=== PATIENT | female | born 1990 | race Caucasian/White ===

== ENCOUNTER 2016-10-19 13:48 | Emergency (ER) | payer OTHER ==
[2016-10-19] MEDS ORDERED: NS 0.9% 1000 ML* 1,000 ML IV ONE (17:20)
[2016-10-19] MEDS ORDERED: Ondansetron INJ* 2 MG/ML VIAL IV ONE (17:51)
[2016-10-19] MEDS ORDERED: Ketorolac INJ* 30 MG/ML 1 ML VIAL IV PUSH ONE (17:51)
[2016-10-19 17:57] LABS: Hematocrit 42 % (35-47); Hemoglobin 14.1 g/dl (12.0-16.0); Mean Corpuscular HGB Conc 34 g/dl (31-36); Mean Corpuscular Hemoglobin 31 pg (27-31); Mean Corpuscular Volume 91 fL (80-97); Mean Platelet Volume 7 um3 (7.4-10.4); Red Blood Count 4.61 10^6/ul (4.0-5.4); Red Cell Distribution Width 13 % (10.5-15); White Blood Count 5.4 10^3/ul (3.5-10.8)
[2016-10-19 18:16] LABS: Albumin 4.2 g/dL (3.2-5.2); BUN/Creatinine Ratio 11.4 (8-20); C Reactive Protein 5.39 mg/L (< 5.00); EGFR Non-African American 88.7 (>60); Globulin 2.8 g/dL (2-4); Potassium 3.5 mmol/L (3.5-5.0); Total Bilirubin 0.6 mg/dL (0.2-1.0)
--- NOTE | 2016-10-19 19:02 | ED ---
Abdominal Pain/Female - HPI Summary HPI Summary: 26 female presents with complaints of abdominal pain, nausea, vomiting and diarrhea for the past 2 days. Patient admits to a scant amount of bright red stool however has not thrown up any blood. Says the diarrhea is profuse and watery. Patient describes the abdominal pain to be diffuse achey and cramping. Admits to having a generalized ache. She states she has been drinking as much as she can but it is hard to keep anything down. She feels as though she is dehydrated. She took some OTC anti-diarrheal medication once yesterday with little relief however figured she should stop taking it because she thought should let her body get rid of the illness. 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 Denies any significant PMHx, , genitalia and urinary symptoms. No recent antibiotic use. - History of Current Complaint Chief Complaint: EDAbdPain Stated Complaint: VOMITING / BLOOD IN DIARRHEA Time Seen by Provider: 10/19/16 17:05 Hx Obtained From: Patient ?: No Onset/Duration: Sudden Onset Timing: Frequency Of Episodes - every 45 minutes Severity Initially: Mild Severity Currently: Mild Pain Intensity: 5 Pain Scale Used: 0-10 Numeric Location: Diffuse Radiates: No Character: Cramping Aggravating Factor(s): Food Alleviating Factor(s): Nothing Associated Signs and Symptoms: Positive: Blood in Stool, Nausea, Vomiting, Diarrhea. Negative: Fever, Urinary Symptoms, Decreased Appetite, Vaginal Bleeding, Vaginal Discharge Allergies/Adverse Reactions: Allergies Allergy/AdvReac Type Severity Reaction Status Date / Time Penicillins [PCN] Allergy Severe Rash Verified 03/23/16 11:31 Sulfa Antibiotics Allergy Severe Hives Verified 03/23/16 11:31 PMH/Surg Hx/FS Hx/Imm Hx Endocrine/Hematology History: Denies: Hx Diabetes Cardiovascular History: Denies: Hx Hypertension Respiratory History: Denies: Hx Asthma - Surgical History Surgery Procedure, Year, and Place: none - Immunization History Immunizations Up to Date: Yes Infectious Disease History: No Infectious Disease History: Denies: Traveled Outside the [place] in Last 30 Days - Social History Alcohol Use: Occasionally Substance Use Type: Reports: None Smoking Status (MU): Never Smoked Tobacco Review of Systems Constitutional: Negative Cardiovascular: Negative Respiratory: Negative Positive: Abdominal Pain, Vomiting, Diarrhea, Nausea Genitourinary: Negative Positive: Myalgia Skin: Negative Neurological: Negative Psychological: Normal All Other Systems Reviewed And Are Negative: Yes Physical Exam Triage Information Reviewed: Yes Vital Signs On Initial Exam: Initial Vitals Temp Pulse Resp BP Pulse Ox 98.8 F 93 16 135/78 100 10/19/16 13:54 10/19/16 13:54 10/19/16 13:54 10/19/16 13:54 10/19/16 13:54 Vital Signs Reviewed: Yes Appearance: Positive: Well-Appearing, No Pain Distress, Well-Nourished Skin: Positive: Warm, Skin Color Reflects Adequate Perfusion, Dry Head/Face: Positive: Normal Head/Face Inspection Eyes: Positive: Normal, Conjunctiva Clear ENT: Positive: Normal ENT inspection, Hearing grossly normal, Pharynx normal Neck: Positive: Supple, Nontender, No Lymphadenopathy Respiratory/Lung Sounds: Positive: Clear to Auscultation, Breath Sounds Present Cardiovascular: Positive: Normal, RRR, Pulses are Symmetrical in both Upper and Lower Extremities Abdomen Description: Positive: Nontender - uncomfortable on palpation, No Organomegaly, Soft. Negative: Bruit, CVA Tenderness (R), CVA Tenderness (L), Distended, Guarding, McBurney's Point Tenderness, Peritoneal Signs Bowel Sounds: Positive: Hyperactive Pelvic Exam: Positive: external exam normal - per patient Musculoskeletal: Positive: Normal, Strength/ROM Intact Neurological: Positive: Normal, Sensory/Motor Intact, Alert, Oriented to Person Place, Time, CN Intact II-III, Normal Gait Psychiatric: Positive: Normal, Affect/Mood Appropriate - Patti Coma Scale Coma Scale Total: 15 Diagnostics - Vital Signs Vital Signs Temp Pulse Resp BP Pulse Ox 10/19/16 18:00 87 124/75 100 10/19/16 17:39 84 100 10/19/16 17:38 126/73 10/19/16 16:53 100.5 F 110 20 125/71 100 10/19/16 15:18 98.2 F 84 15 123/75 100 10/19/16 13:54 98.8 F 93 16 135/78 100 - Laboratory Lab Results: Lab Results 10/19/16 10/19/16 10/19/16 Range/Units 17:45 17:45 17:45 WBC 5.4 (3.5-10.8) 10^3/ul RBC 4.61 (4.0-5.4) 10^6/ul Hgb 14.1 (12.0-16.0) g/dl Hct 42 (35-47) % MCV 91 (80-97) fL MCH 31 (27-31) pg MCHC 34 (31-36) g/dl RDW 13 (10.5-15) % Plt Count 229 (150-450) 10^3/ul MPV 7 L (7.4-10.4) um3 Neut % (Auto) 72.6 (38-83) % Lymph % (Auto) 18.3 L (25-47) % Boundary % (Auto) 8.5 (1-9) % Eos % (Auto) 0 (0-6) % Baso % (Auto) 0.6 (0-2) % Absolute Neuts (auto) 3.9 (1.5-7.7) 10^3/ul Absolute Lymphs (auto) 1.0 (1.0-4.8) 10^3/ul Absolute Monos (auto) 0.5 (0-0.8) 10^3/ul Absolute Eos (auto) 0 (0-0.6) 10^3/ul Absolute Basos (auto) 0 (0-0.2) 10^3/ul Absolute Nucleated RBC 0.01 10^3/ul Nucleated RBC % 0.1 Sodium 132 L (133-145) mmol/L Potassium 3.5 (3.5-5.0) mmol/L Chloride 100 L (101-111) mmol/L Carbon Dioxide 25 (22-32) mmol/L Anion Gap 7 (2-11) mmol/L BUN 9 (6-24) mg/dL Creatinine 0.79 (0.51-0.95) mg/dL Est GFR ( Amer) 114.0 (>60) Est GFR (Non-Af Amer) 88.7 (>60) BUN/Creatinine Ratio 11.4 (8-20) Glucose 89 (70-100) mg/dL Lactic Acid 0.8 (0.5-2.0) mmol/L Calcium 9.0 (8.6-10.3) mg/dL Total Bilirubin 0.60 (0.2-1.0) mg/dL AST 27 (13-39) U/L ALT 17 (7-52) U/L Alkaline Phosphatase 42 (34-104) U/L C-Reactive Protein 5.39 H (< 5.00) mg/L Total Protein 7.0 (6.4-8.9) g/dL Albumin 4.2 (3.2-5.2) g/dL Globulin 2.8 (2-4) g/dL Albumin/Globulin Ratio 1.5 (1-3) Lipase 20 (11.0-82.0) U/L Result Diagrams: 10/19/16 17:45 10/19/16 17:45 Lab Statement: Any lab studies that have been ordered have been reviewed, and results considered in the medical decision making process. Re-Evaluation - Re-Evaluation First Eval Re-Evaluation Time: 17:50 Change: Improved - patient was feeling better after zofran and toradol Abdominal Pain Fem Course/Dx - Course Course Of Treatment: Labs, UA, Stool cultures/ occult obtained and fluids, toradol, zofran administered. Patient was feeling much better and did not have a vominting or diarrhea episode while in ED. She was able to drink water. Due to labs being normal patient was sent home with zofran and told culture results will be reported to her in a phonecall. Also encouraged to take probiotics, eat a bland BRAT diet, take OTC anti-diarrheal medication as needed and drink plenty of fluids. Aware of worsening signs and symptoms. - Diagnoses Differential Diagnosis: Positive: Constipation, Gall Bladder Disease, Urinary Tract Infection Provider Diagnoses: Nausea & vomiting, Abdominal pain, Viral syndrome, Diarrhea Discharge - Discharge Plan Condition: Stable Disposition: HOME Prescriptions: Ondansetron ODT TAB* [Zofran 4 MG Odt TAB*] 4 mg PO Q6H PRN #20 tab.odt PRN Reason: Nausea Ondansetron ODT TAB* [Zofran 4 MG Odt TAB*] 4 mg PO Q6H PRN #20 tab.odt PRN Reason: Nausea Patient Education Materials: Acute Nausea and Vomiting (ED), Abdominal Pain (ED ) Referrals: [facility] IRISH Floyd [Primary Care Provider] - Additional Instructions: Take prescribed zofran to help with nausea. Drink plenty of fluids to stay well hydrated. Take OTC loperimide or immodium to help with diarrhea.
[2016-10-19 19:25] LABS: Urine Bilirubin Negative (Negative); Urine Glucose Negative (Negative); Urine Nitrite Negative (Negative)
[2016-10-19 19:58] VITALS: BP 115/64
== END 2016-10-19 20:13 | disposition home or self-care (01) ==
LOC: ED 13:48
DX: R10.9 Unspecified abdominal pain (principal); R11.2 Nausea with vomiting, unspecified; B34.9 Viral infection, unspecified; R19.7 Diarrhea, unspecified; K92.1 Melena
CPT/HCPCS: 36415; 80053; 81003; 83605; 83630; 83690; 85025; 86140; 87493; 96374; 96375; 99283; J1885; J2405